=== PATIENT | female | born 1970 | race Caucasian/White ===

== ENCOUNTER 2018-08-31 16:59 | Observation (INO) ==
[2018-08-31] MEDS ORDERED: Aspirin 325 MG Tablet PO ONE (17:34)
--- NOTE | 2018-08-31 17:42 | ED ---
HPI General Chief Complaint: Arrhythmia / Palpitations Stated Complaint: Cardiac Time Seen by Provider: 08/31/18 17:27 Source: patient Mode of arrival: ambulatory Limitations: no limitations History of Present Illness HPI narrative: 48 YO F with PMH of GERD, HTN presents to the ED for evaluation of abnormal EKG. The patient states that she went to her PCP with complaint of worsening GERD symptoms x 4 days and was sent for further evaluation. She describes a discomfort that radiates from the belly into the chest, 6/10 maximally, pain is intermittent, wavelike. She states that the pain is worsened by eating acidic foods like tomatoes. No alleviating factors reported. Currently asymptomatic. She denies chest pain, palpitations, shortness of breath, abdominal pain, nausea, vomiting, changes in bowel habits, history of abdominal surgery, lower extremity edema, calf pain. She uses oral contraception. She is a lifelong nonsmoker. She denies recent period of immobilization. She denies familial history of [place]. She states that she was told that she is "borderline" for diabetes and hyperlipidemia. Related Data Home Medications Medication Instructions Recorded Confirmed hydrochlorothiazide 25 mg PO DAILY 08/31/18 08/31/18 multivitamin 1 tab PO DAILY 08/31/18 08/31/18 omeprazole 20 mg PO DAILY 08/31/18 08/31/18 Previous Rx's Medication Instructions Recorded hydrocodone-acetaminophen [[place]] 1 tab PO Q4H #25 tab 09/01/18 Allergies Allergy/AdvReac Type Severity Reaction Status Date / Time No Known Allergies Allergy Verified 08/31/18 17:44 Review of Systems ROS: all other systems reviewed are negative PMFSH Medical History Medical History GERD (gastroesophageal reflux disease) (Acute) HBP (high blood pressure) (Acute) Irritable bowel syndrome (Acute) Family History Family History Other Family history normal Social History Social History Substance History: No History of Abuse Second Hand Smoke Exposure: No Smoking Status: Never smoker How Often Do You Have a Drink Containing Alcohol: Never Recent Travel in [facility] [place] within the Last 8 Weeks: No Recent Out of Country Travel within the Last 8 Weeks: No Exam Narrative Exam Narrative: GENERAL: Well-nourished, well-developed white female in no acute distress. SKIN: Focused skin assessment warm/dry. HEAD: Atraumatic. Normocephalic. EYES: Pupils equal and round. No scleral icterus. No injection or drainage. ENT: No nasal bleeding or discharge. Mucous membranes pink and moist. NECK: Trachea midline. No JVD. CARDIOVASCULAR: Tachycardic. Patient regular rate and rhythm. No murmur appreciated. RESPIRATORY: No accessory muscle use. Clear to auscultation. Breath sounds clear and Equal bilaterally. GASTROINTESTINAL: Abdomen soft, nondistended. TTP in the RUQ. Hepatic and splenic margins not palpable. Active bowel sounds. MUSCULOSKELETAL: No obvious deformities. No clubbing. No cyanosis. No edema. Homans sign negative bilaterally. NEUROLOGICAL: Awake and alert. No obvious cranial nerve deficits. Motor grossly within normal limits. Normal speech. PSYCHIATRIC: Appropriate mood and affect; insight and judgment normal. Course Initial Documented Vital Signs Temperature 97.7 F 08/31/18 17:08 Pulse Rate 133 H 08/31/18 17:08 Respiratory Rate 20 08/31/18 17:08 Blood Pressure 165/112 H 08/31/18 17:08 Pulse Oximetry 98 08/31/18 17:08 Last Documented Vital Signs Temperature 98.1 F 09/02/18 04:00 Pulse Rate 93 H 09/02/18 04:00 Respiratory Rate 17 09/02/18 04:00 Blood Pressure 120/63 09/02/18 04:00 Pulse Oximetry 97 09/02/18 04:00 Clinical Decision Support HEART Score Questions History: Slightly suspicious EKG: Non-specific repolarization disturbance Age: 45-64 years Risk Factors: 1-2 Risk Factors Initial Troponin: Normal Limit Heart Score HEART Score: 3 Wells' Criteria Questions Clinical Signs and Symptoms of DVT: No PE is primary diagnosis or equally likely: Yes Heart Rate greater than 100: Yes Immobilized at least 3 days or Surgery in previous 4 weeks: No Previous, objectively diagnosed PE or DVT: No Hemoptysis: No Malignancy with treatment within 6 months or palliative: No Wells' Criteria Score Wells' Criteria Score: 4.5 Medical Decision Making LUCIEN Attestation LUCIEN supervised visit: Yes Attestation: I, Dr. Spence, have reviewed the advance practice practitioner's documentation and am in agreement, met with the patient face to face, made the diagnosis, and the medical decision making was done by me. *My assessment and Findings: Acute cholecystitis MDM Narrative Medical decision making narrative: 48 YO F with PMH of GERD, HTN presents to the ED for evaluation of abnormal EKG. The patient states that she went to her PCP with complaint of worsening GERD symptoms x 4 days and was sent for further evaluation. She describes a discomfort that radiates from the belly into the chest, 6/10 maximally, pain is intermittent, wavelike. She states that the pain is worsened by eating acidic foods like tomatoes. No alleviating factors reported. Currently asymptomatic. The patient is tachycardic and hypertensive on presentation. On exam CTAB. Abdomen tender in the right upper quadrant. No lower extremity edema. Homans sign negative bilaterally. The patient was ministered a liter of fluids. CT without acute findings. Troponin negative x1. CXR without acute findings. D-dimer 1.00. CTA negative for PE. CBC with leukocytosis of 21.7. CMP with potassium of 2.5. Gallbladder ultrasound reveals stone in the gallbladder neck with sludge. No wall thickening. Trace pericholecystic fluid. Lipase 107. UA cloudy, ketone positive, large occult blood. Moderate leukocyte esterase, 175 WBCs, few bacteria. Patient was administered 40 mEq of potassium by mouth and 40 mg potassium by IV. 3.75 g Zosyn initiated. Patient was administered a second liter of normal saline. Heart rate improved to 115. I repeatedly asked the patient if she would like pain medications and she refuses. Dr. Spence spoke with Dr. Sanchez who wants the patient made n.p.o. at midnight and will consider surgery in the morning. I discussed this plan with the patient who is agreeable to admission. Discussed the patient with Dr. Mckeon who agrees to accept her to the medicine service. Please see medicine and surgery notes for disposition. Medical Screen Exam Complete: Yes Emergency Medical Condition: Yes Differential Diagnosis Differential Diagnosis: PE versus GERD versus choledocholithiasis versus metabolic derangement versus other Lab Data Result diagrams: 09/02/18 04:09 09/01/18 06:00 POC Results POC Urine Results Negative Lab Results 08/31/18 08/31/18 08/31/18 Range/Units 17:39 17:39 17:39 WBC 21.7 H (4.0-11.0) th/mm3 RBC 4.82 (4.00-5.30) mil/mm3 Hgb 15.1 (11.6-15.3) gm/dL Hct 43.6 (35.0-46.0) % MCV 90.4 (80.0-100.0) fL MCH 31.4 (27.0-34.0) pg MCHC 34.8 (32.0-36.0) % RDW 14.2 (11.6-17.2) % Plt Count 289 (150-450) th/mm3 MPV 8.2 (7.0-11.0) fL Neut % (Auto) 84.8 H (16.0-70.0) % Lymph % (Auto) 8.0 L (9.0-44.0) % Cross % (Auto) 6.6 (0.0-8.0) % Eos % (Auto) 0.3 (0.0-4.0) % Baso % (Auto) 0.3 (0.0-2.0) % Neut # (Auto) 18.4 H (1.8-7.7) th/mm3 Lymph # (Auto) 1.7 (1.0-4.8) th/mm3 Cross # (Auto) 1.4 H (0.0-0.9) th/mm3 Eos # (Auto) 0.1 (0.0-0.4) th/mm3 Baso # (Auto) 0.1 (0.0-0.2) th/mm3 WBC Differential . Differential Comment Auto diff final D-Dimer Quant (PE/DVT) 1.00 H (0.00-0.50) mg/L FEU Sodium 133 L (136-145) meq/L Potassium 2.5 L* (3.5-5.1) meq/L Chloride 94 L (98-107) meq/L Carbon Dioxide 28.4 (21.0-32.0) meq/L Anion Gap 11 (5-15) meq/L BUN 16 (7-18) mg/dL Creatinine 0.71 (0.50-1.00) mg/dL Estimated GFR 88 L (>89) mL/min Random Glucose 123 H (74-106) mg/dL Calcium 9.0 (8.5-10.1) mg/dL Total Bilirubin 0.5 (0.2-1.0) mg/dL AST 14 L (15-37) U/L ALT 16 (10-53) U/L Alkaline Phosphatase 95 (45-117) U/L Total Creatine Kinase (26-192) U/L Troponin I Less than 0.02 L (0.02-0.05) ng/mL Total Protein 8.9 H (6.4-8.2) g/dL Albumin 3.4 (3.4-5.0) g/dL Lipase 107 (73-393) U/L Urine Color (Yellw/Straw) Urine Clarity (Clear) Urine pH (5.0-8.5) Ur Specific [place] (1.002-1.035) Urine Protein (Neg-Trace) mg/dL Urine Glucose (UA) (Negative) mg/dL Urine Ketones (Negative) mg/dL Urine Occult Blood (Negative) Urine Nitrate (Negative) Urine Bilirubin (Negative) Urine Urobilinogen (Less than 2) mg/dL Ur Leukocyte Esterase (Negative) Urine RBC (0-3) /hpf Urine WBC (0-5) /hpf Ur Squamous Epith Cells (0-5) /hpf Urine Bacteria (None) /hpf Urine Mucus (Occasional) /lpf Micro UA Comment Ur Microscopic Review Urine Culture Comments 08/31/18 09/01/18 09/01/18 Range/Units 18:45 02:07 06:00 WBC 17.1 H (4.0-11.0) th/mm3 RBC 4.24 (4.00-5.30) mil/mm3 Hgb 13.2 (11.6-15.3) gm/dL Hct 39.2 (35.0-46.0) % MCV 92.4 (80.0-100.0) fL MCH 31.1 (27.0-34.0) pg MCHC 33.7 (32.0-36.0) % RDW 14.4 (11.6-17.2) % Plt Count 243 (150-450) th/mm3 MPV 8.6 (7.0-11.0) fL Neut % (Auto) 80.2 H (16.0-70.0) % Lymph % (Auto) 11.7 (9.0-44.0) % Cross % (Auto) 7.1 (0.0-8.0) % Eos % (Auto) 0.9 (0.0-4.0) % Baso % (Auto) 0.1 (0.0-2.0) % Neut # (Auto) 13.7 H (1.8-7.7) th/mm3 Lymph # (Auto) 2.0 (1.0-4.8) th/mm3 Cross # (Auto) 1.2 H (0.0-0.9) th/mm3 Eos # (Auto) 0.2 (0.0-0.4) th/mm3 Baso # (Auto) 0.0 (0.0-0.2) th/mm3 WBC Differential . Differential Comment Auto diff final D-Dimer Quant (PE/DVT) (0.00-0.50) mg/L FEU Sodium (136-145) meq/L Potassium (3.5-5.1) meq/L Chloride (98-107) meq/L Carbon Dioxide (21.0-32.0) meq/L Anion Gap (5-15) meq/L BUN (7-18) mg/dL Creatinine (0.50-1.00) mg/dL Estimated GFR (>89) mL/min Random Glucose (74-106) mg/dL Calcium (8.5-10.1) mg/dL Total Bilirubin (0.2-1.0) mg/dL AST (15-37) U/L ALT (10-53) U/L Alkaline Phosphatase (45-117) U/L Total Creatine Kinase 27 (26-192) U/L Troponin I Less than 0.02 L (0.02-0.05) ng/mL Total Protein (6.4-8.2) g/dL Albumin (3.4-5.0) g/dL Lipase (73-393) U/L Urine Color Red (Yellw/Straw) Urine Clarity Cloudy H (Clear) Urine pH 5.0 (5.0-8.5) Ur Specific [place] 1.020 (1.002-1.035) Urine Protein 100 H (Neg-Trace) mg/dL Urine Glucose (UA) Negative (Negative) mg/dL Urine Ketones Trace H (Negative) mg/dL Urine Occult Blood Large H (Negative) Urine Nitrate Negative (Negative) Urine Bilirubin Negative (Negative) Urine Urobilinogen Less than 2 (Less than 2) mg/dL Ur Leukocyte Esterase Moderate H (Negative) Urine RBC (0-3) /hpf Urine WBC 175 H (0-5) /hpf Ur Squamous Epith Cells 5 (0-5) /hpf Urine Bacteria Few H (None) /hpf Urine Mucus Many H (Occasional) /lpf Micro UA Comment Culture indicated Ur Microscopic Review Not Reportable Urine Culture Comments Culture indicated 09/01/18 09/01/18 09/01/18 Range/Units 06:00 20:43 20:43 WBC (4.0-11.0) th/mm3 RBC (4.00-5.30) mil/mm3 Hgb 11.3 L (11.6-15.3) gm/dL Hct Cancelled 32.7 L (35.0-46.0) % MCV (80.0-100.0) fL MCH (27.0-34.0) pg MCHC (32.0-36.0) % RDW (11.6-17.2) % Plt Count (150-450) th/mm3 MPV (7.0-11.0) fL Neut % (Auto) (16.0-70.0) % Lymph % (Auto) (9.0-44.0) % Cross % (Auto) (0.0-8.0) % Eos % (Auto) (0.0-4.0) % Baso % (Auto) (0.0-2.0) % Neut # (Auto) (1.8-7.7) th/mm3 Lymph # (Auto) (1.0-4.8) th/mm3 Cross # (Auto) (0.0-0.9) th/mm3 Eos # (Auto) (0.0-0.4) th/mm3 Baso # (Auto) (0.0-0.2) th/mm3 WBC Differential Differential Comment D-Dimer Quant (PE/DVT) (0.00-0.50) mg/L FEU Sodium 137 (136-145) meq/L Potassium 3.6 D (3.5-5.1) meq/L Chloride 103 D (98-107) meq/L Carbon Dioxide 23.7 (21.0-32.0) meq/L Anion Gap 10 (5-15) meq/L BUN 9 (7-18) mg/dL Creatinine 0.47 L (0.50-1.00) mg/dL Estimated GFR Greater than 89 (>89) mL/min Random Glucose 105 (74-106) mg/dL Calcium 8.0 L D (8.5-10.1) mg/dL Total Bilirubin 0.9 (0.2-1.0) mg/dL AST 13 L (15-37) U/L ALT 12 (10-53) U/L Alkaline Phosphatase 83 (45-117) U/L Total Creatine Kinase 28 (26-192) U/L Troponin I Less than 0.02 L (0.02-0.05) ng/mL Total Protein 7.4 D (6.4-8.2) g/dL Albumin 2.7 L D (3.4-5.0) g/dL Lipase (73-393) U/L Urine Color (Yellw/Straw) Urine Clarity (Clear) Urine pH (5.0-8.5) Ur Specific [place] (1.002-1.035) Urine Protein (Neg-Trace) mg/dL Urine Glucose (UA) (Negative) mg/dL Urine Ketones (Negative) mg/dL Urine Occult Blood (Negative) Urine Nitrate (Negative) Urine Bilirubin (Negative) Urine Urobilinogen (Less than 2) mg/dL Ur Leukocyte Esterase (Negative) Urine RBC (0-3) /hpf Urine WBC (0-5) /hpf Ur Squamous Epith Cells (0-5) /hpf Urine Bacteria (None) /hpf Urine Mucus (Occasional) /lpf Micro UA Comment Ur Microscopic Review Urine Culture Comments 09/02/18 Range/Units 04:09 WBC 13.0 H (4.0-11.0) th/mm3 RBC 3.59 L (4.00-5.30) mil/mm3 Hgb 11.1 L (11.6-15.3) gm/dL Hct 33.3 L (35.0-46.0) % MCV 92.8 (80.0-100.0) fL MCH 31.1 (27.0-34.0) pg MCHC 33.5 (32.0-36.0) % RDW 14.3 (11.6-17.2) % Plt Count 237 (150-450) th/mm3 MPV 8.4 (7.0-11.0) fL Neut % (Auto) 78.1 H (16.0-70.0) % Lymph % (Auto) 14.4 (9.0-44.0) % Cross % (Auto) 6.8 (0.0-8.0) % Eos % (Auto) 0.6 (0.0-4.0) % Baso % (Auto) 0.1 (0.0-2.0) % Neut # (Auto) 10.2 H (1.8-7.7) th/mm3 Lymph # (Auto) 1.9 (1.0-4.8) th/mm3 Cross # (Auto) 0.9 (0.0-0.9) th/mm3 Eos # (Auto) 0.1 (0.0-0.4) th/mm3 Baso # (Auto) 0.0 (0.0-0.2) th/mm3 WBC Differential . Differential Comment Auto diff final D-Dimer Quant (PE/DVT) (0.00-0.50) mg/L FEU Sodium (136-145) meq/L Potassium (3.5-5.1) meq/L Chloride (98-107) meq/L Carbon Dioxide (21.0-32.0) meq/L Anion Gap (5-15) meq/L BUN (7-18) mg/dL Creatinine (0.50-1.00) mg/dL Estimated GFR (>89) mL/min Random Glucose (74-106) mg/dL Calcium (8.5-10.1) mg/dL Total Bilirubin (0.2-1.0) mg/dL AST (15-37) U/L ALT (10-53) U/L Alkaline Phosphatase (45-117) U/L Total Creatine Kinase (26-192) U/L Troponin I (0.02-0.05) ng/mL Total Protein (6.4-8.2) g/dL Albumin (3.4-5.0) g/dL Lipase (73-393) U/L Urine Color (Yellw/Straw) Urine Clarity (Clear) Urine pH (5.0-8.5) Ur Specific [place] (1.002-1.035) Urine Protein (Neg-Trace) mg/dL Urine Glucose (UA) (Negative) mg/dL Urine Ketones (Negative) mg/dL Urine Occult Blood (Negative) Urine Nitrate (Negative) Urine Bilirubin (Negative) Urine Urobilinogen (Less than 2) mg/dL Ur Leukocyte Esterase (Negative) Urine RBC (0-3) /hpf Urine WBC (0-5) /hpf Ur Squamous Epith Cells (0-5) /hpf Urine Bacteria (None) /hpf Urine Mucus (Occasional) /lpf Micro UA Comment Ur Microscopic Review Urine Culture Comments Imaging Data Radiologist's impression: Chest X-Ray 08/31/18 17:34 CONCLUSION: No active disease. Gallbladder Ultrasound 08/31/18 17:34 CONCLUSION: 1. Gallstone in gallbladder neck sludge in gallbladder and trace fluid around gallbladder. No significant gallbladder wall thickening. Chest CTA 08/31/18 18:44 CONCLUSION: 1. No pulmonary embolus. 2. Small focal subpleural density in the posterior right lateral base likely related to atelectasis or small focal consolidation. This can be followed. 3. Gallstone ECG Data Attestation: I personally reviewed and interpreted this ECG as follows: Interpretation: Rate 123 Sinus tachycardia Normal axis No acute ST changes Discharge Plan Discharge Disposition Patient Disposition: 30 Still Patient Physicians Team ED Provider: Evangelist Spence ED Midlevel Provider: Loraien uK Primary Care Provider: Johnna Orellana Attending Provider: Ameena Naik Other Providers: Rai Sanchez Status ED Status: Left Department Discharge Information Discharge Date/Time: 09/01/18 00:48
[2018-08-31 18:09] LABS: Baso # (Auto) 0.1 th/mm3 (0.0-0.2); Baso % (Auto) 0.3 % (0.0-2.0); Eos # (Auto) 0.1 th/mm3 (0.0-0.4); Eos % (Auto) 0.3 % (0.0-4.0); Hematocrit 43.6 % (35.0-46.0); Hemoglobin 15.1 gm/dL (11.6-15.3); Lymph # (Auto) 1.7 th/mm3 (1.0-4.8); Mean Corpuscular HGB Conc 34.8 % (32.0-36.0); Mean Corpuscular Hemoglobin 31.4 pg (27.0-34.0); Mean Corpuscular Volume 90.4 fL (80.0-100.0); Mean Platelet Volume 8.2 fL (7.0-11.0); Mono # (Auto) 1.4 th/mm3 (0.0-0.9); Mono % (Auto) 6.6 % (0.0-8.0); Neut # (Auto) 18.4 th/mm3 (1.8-7.7); Neut % (Auto) 84.8 % (16.0-70.0); Platelet Count 289 th/mm3 (150-450); Red Blood Count 4.82 mil/mm3 (4.00-5.30); Red Cell Distribution Width 14.2 % (11.6-17.2); White Blood Count 21.7 th/mm3 (4.0-11.0)
--- NOTE | 2018-08-31 18:11 | XR ---
EXAM DATE: 08/31/2018 6:02 PM EST AGE/SEX: 48 years / Female INDICATIONS: Chest discomfort. CLINICAL DATA: This is the patient's initial encounter. Patient reports that signs and symptoms have been present for 1 day and indicates a pain score of 6/10. MEDICAL/SURGICAL HISTORY: None. None. COMPARISON: . FINDINGS: A single AP view of the chest demonstrates the lungs to be symmetrically aerated without evidence of mass, infiltrate or effusion. The cardiomediastinal contours are unremarkable. Osseous structures a re intact. CONCLUSION: No active disease. Electronically signed by: Jayden Rinaldi MD 08/31/2018 6:10 PM EST
[2018-08-31] MEDS ORDERED: Sod Chloride 0.9% Inj 1,000 ML IV.SIG ONE (18:23)
--- NOTE | 2018-08-31 18:26 | US ---
EXAM DATE: 08/31/2018 6:20 PM EST AGE/SEX: 48 years / Female INDICATIONS: Right upper quadrant pain. CLINICAL DATA: This is the patient's initial encounter. Patient reports that signs and symptoms have been present for 4 - 6 days and indicates a pain score of 4/10. MEDICAL/SURGICAL HISTORY: Gastroesophageal reflux disease. Hypertension. . Ankle surgery. COMPARISON: No prior exams available for comparison. MEASUREMENTS: Liver:__ 18.1 cm. Common Bile Duct:__ 5mm. FINDINGS: Liver: Normal echotexture without focal lesion or ductal dilatation. Portal Vein: Hepatopedal flow seen in portal vein. Common Duct: No intraluminal mass or stone visualized. Gallbladder: Gallstone in gallbladder neck measuring up to 1.9 x 0.4 x 1.5 cm. Also sludge in gallbl adder. Trace fluid around gallbladder. Pancreas: The visualized portions are within normal limits Right Kidney: Normal echotexture and cortical thickness. No mass or hydronephrosis. Other: None. CONCLUSION: 1. Gallstone in gallbladder neck sludge in gallbladder and trace fluid around gallbladder. No signif icant gallbladder wall thickening. Electronically signed by: Jayden Rinaldi MD 08/31/2018 6:24 PM EST
[2018-08-31 18:38] LABS: Alanine Aminotransferase 16 U/L (10-53); Albumin 3.4 g/dL (3.4-5.0); Anion Gap 11 meq/L (5-15); Aspartate Aminotransferase 14 U/L (15-37); Blood Urea Nitrogen 16 mg/dL (7-18); Carbon Dioxide 28.4 meq/L (21.0-32.0); Chloride 94 meq/L (98-107); Glomerular Filtration Rate 88 mL/min (>89); Glucose,Random 123 mg/dL (74-106); Lipase 107 U/L (73-393); Sodium 133 meq/L (136-145)
[2018-08-31 18:42] LABS: Alkaline Phosphatase 95 U/L (45-117); Total Protein 8.9 g/dL (6.4-8.2)
[2018-08-31 18:51] LABS: Potassium 2.5 meq/L (3.5-5.1)
[2018-08-31 19:18] LABS: Bacteria,Urine Few /hpf; Bilirubin,Urine Negative (Negative); Clarity,Urine Cloudy (Clear); Color,Urine Red (Yellw/Straw); Glucose,Urine (UA) Negative (Negative); Leukocyte Esterase,Urine Moderate (Negative); Mucus,Urine Many /lpf (Occasional); Nitrite,Urine Negative (Negative); Squamous Epithelial Cell,Urine 5 /hpf (0-5)
--- NOTE | 2018-08-31 19:54 | CT ---
EXAM DATE: 08/31/2018 7:25 PM EST AGE/SEX: 48 years / Female INDICATIONS: Elevated heart rate CLINICAL DATA: This is the patient's initial encounter. Patient reports that signs and symptoms have been present for 1 day and indicates a pain score of 0/10. MEDICAL/SURGICAL HISTORY: Hypertension. None. RADIATION DOSE: 6.19 CTDI (mGy) COMPARISON: No prior exams available for comparison. TECHNIQUE: Volumetric scanning was performed using a multi-row detector CT scanner during bolus infu luis angel of 52 ml Omnipaque 350 (iohexol) nonionic water-soluble contrast as a single exam dose. The brigida a was post processed with a variety of visualization algorithms including full volume maximum intensi ty projection and sliding thin slab reformation. Using automated exposure control and adjustment of t he mA and/or kV according to patient size, radiation dose was kept as low as reasonably achievable to obtain optimal diagnostic quality images. DICOM format image data is available electronically for r eview and comparison. FINDINGS: Pulmonary Arteries: No filling defects are seen in the pulmonary arteries out to the subsegmental ve ssels. The left and right pulmonary arteries are normal in diameter. Lung: There is a small focal area of subpleural density seen at the posterior lateral right base. Effusion: None. Mediastinum: No evidence of mediastinal or hilar adenopathy. Other: The axilla is unremarkable. There is a calcified gallstone seen in the gallbladder. CONCLUSION: 1. No pulmonary embolus. 2. Small focal subpleural density in the posterior right lateral base likely related to atelectasis or small focal consolidation. This can be followed. 3. Gallstone Electronically signed by: Cecilio Escamilla MD 08/31/2018 7:52 PM EST
[2018-08-31] MEDS ORDERED: Piperacil/Tazo 3.375 GM Premix 50 ML IV.SIG ONE (20:13)
[2018-09-01] MEDS ORDERED: Acetaminophen 325 MG Tablet PO PRN (00:49)
[2018-09-01] MEDS ORDERED: Bisacodyl 10 MG Supp RECTAL PRN (00:49)
[2018-09-01] MEDS ORDERED: Sodium Chloride 0.9% 2 ML Flush PRN IV.FLUSH (01:05)
--- NOTE | 2018-09-01 01:06 | P.HP ---
History of Present Illness Service: [facility] Primary Care Physician: Johnna Orellana MD History of Present Illness: 48-year-old female with a past medical history significant for IBS, GERD and hypertension presents to the emergency department for the evaluation of chest burning and abdominal pain. The patient went to urgent care where she was found to be in sinus tachycardia and sent to the emergency department for further evaluation. She denies any fevers or chills. No nausea/vomiting/ diarrhea. No chest pain or shortness of breath. Found to have a leukocytosis of 21.7. EKG significant for sinus tachycardia, pulse 123. Review of Systems All other systems reviewed negative except as stated in HPI PMFSH - History History Provided By: Patient - Medical History Medical History: Medical History (Last Updated 09/01/18 @ 00:58 by Mi Mckeon MD) GERD (gastroesophageal reflux disease) HBP (high blood pressure) Irritable bowel syndrome - Surgical History Surgical History: Surgical History (Last Reviewed 09/01/18 @ 00:58 by Mi Mckeon MD) History of ankle surgery - Family History Family History: Family History (Last Updated 09/01/18 @ 00:58 by Mi Mckeon MD) Other Family history normal - Tobacco History Second Hand Smoke Exposure: No Smoking Status: Never smoker - Alcohol History How Often Do You Have a Drink Containing Alcohol: Never - Substance Use History Substance History: No History of Abuse - Travel History Recent Travel in the [place] Within the Last 8 Weeks: No Recent Travel Out of the Country Within the Last 8 Weeks: No - Immunization History Tetanus Immunization: >5 Years Medications and Allergies Active Medications: Active Medications Acetaminophen (Tylenol) 650 mg PO Q4H PRN PRN Reason: Temp > 100.4 Potassium Chloride/Sodium Chloride (Ns + Kcl 20 Meq Inj) 1,000 mls @ 70 mls/hr IV.CONT .[id number] DEL Last Admin: 08/31/18 19:08 Dose: 125 mls/hr Sodium Chloride (Ns Flush) 2 ml IV.FLUSH UNSCH PRN PRN Reason: FLUSH AFTER USING IV ACCESS Last Admin: 08/31/18 17:46 Dose: 2 ml Allergies Allergy/AdvReac Type Severity Reaction Status Date / Time No Known Allergies Allergy Verified 08/31/18 17:44 Home Medications Medication Instructions Recorded Confirmed Type hydrochlorothiazide 25 mg PO DAILY 08/31/18 08/31/18 History multivitamin 1 tab PO DAILY 08/31/18 08/31/18 History omeprazole 20 mg PO DAILY 08/31/18 08/31/18 History Exam Vital signs: Vital Signs 08/31/18 17:08 08/31/18 17:34 08/31/18 18:12 Temperature 97.7 F 97.8 F 97.8 F Pulse Rate 133 H 128 H 124 H Respiratory Rate 20 16 16 Blood Pressure 165/112 H 147/88 H 140/83 Pulse Oximetry 98 99 99 08/31/18 19:06 08/31/18 23:35 Temperature Pulse Rate 103 H Respiratory Rate 18 Blood Pressure 144/89 H 120/72 Pulse Oximetry 97 Intake & Output 08/31/18 08/31/18 09/01/18 06:59 18:59 06:59 Intake Total 1050 / 1050 Balance 1050 / 1050 Weight 53.977 kg Intake: IV 1050 / 1050 Zosyn 3.375 GM Premix 50 ML @ 50 / 50 100 mls/hr IV.SIG ONCE ONE Rx#: [id number] NS Inj 1,000 ML @ Wide Open IV. 1000 / 1000 SIG BOLUS ONE Rx#:[id number] Narrative: Gen.: No acute distress Head: Normocephalic. Atraumatic. EENT: Pupils equal round and reactive to light. Nose without drainage. Airway intact. Throat without injection. Cardiovascular: Regular rate and rhythm. No murmurs, rubs or gallops. Respiratory: Lungs clear to auscultation bilaterally. No wheezes or rhonchi. Abdomen: Soft, diffusely tender to palpation, nondistended. No peritoneal signs. Musculoskeletal: No gross deformities. No edema. Skin: No obvious rashes or erythema. Neuro: Sensory and motor grossly intact. Cranial nerves II through XII grossly intact. Results - Labs CBC & Chem 7: 08/31/18 17:39 08/31/18 17:39 Labs: Laboratory Results - last 24 hr 08/31/18 08/31/18 08/31/18 17:39 17:39 17:39 WBC 21.7 H RBC 4.82 Hgb 15.1 Hct 43.6 MCV 90.4 MCH 31.4 MCHC 34.8 RDW 14.2 Plt Count 289 MPV 8.2 Neut % (Auto) 84.8 H Lymph % (Auto) 8.0 L [place] % (Auto) 6.6 Eos % (Auto) 0.3 Baso % (Auto) 0.3 Neut # (Auto) 18.4 H Lymph # (Auto) 1.7 [place] # (Auto) 1.4 H Eos # (Auto) 0.1 Baso # (Auto) 0.1 WBC Differential . Differential Comment Auto diff final D-Dimer Quant (PE/DVT) 1.00 H Sodium 133 L Potassium 2.5 L* Chloride 94 L Carbon Dioxide 28.4 Anion Gap 11 BUN 16 Creatinine 0.71 Estimated GFR 88 L Random Glucose 123 H Calcium 9.0 Total Bilirubin 0.5 AST 14 L ALT 16 Alkaline Phosphatase 95 Troponin I Less than 0.02 L Total Protein 8.9 H Albumin 3.4 Lipase 107 Urine Color Urine Clarity Urine pH Ur Specific [place] Urine Protein Urine Glucose (UA) Urine Ketones Urine Occult Blood Urine Nitrate Urine Bilirubin Urine Urobilinogen Ur Leukocyte Esterase Urine RBC Urine WBC Ur Squamous Epith Cells Urine Bacteria Urine Mucus Micro UA Comment Ur Microscopic Review Urine Culture Comments 08/31/18 18:45 WBC RBC Hgb Hct MCV MCH MCHC RDW Plt Count MPV Neut % (Auto) Lymph % (Auto) [place] % (Auto) Eos % (Auto) Baso % (Auto) Neut # (Auto) Lymph # (Auto) [place] # (Auto) Eos # (Auto) Baso # (Auto) WBC Differential Differential Comment D-Dimer Quant (PE/DVT) Sodium Potassium Chloride Carbon Dioxide Anion Gap BUN Creatinine Estimated GFR Random Glucose Calcium Total Bilirubin AST ALT Alkaline Phosphatase Troponin I Total Protein Albumin Lipase Urine Color Red Urine Clarity Cloudy H Urine pH 5.0 Ur Specific [place] 1.020 Urine Protein 100 H Urine Glucose (UA) Negative Urine Ketones Trace H Urine Occult Blood Large H Urine Nitrate Negative Urine Bilirubin Negative Urine Urobilinogen Less than 2 Ur Leukocyte Esterase Moderate H Urine RBC Urine WBC 175 H Ur Squamous Epith Cells 5 Urine Bacteria Few H Urine Mucus Many H Micro UA Comment Culture indicated Ur Microscopic Review Not Reportable Urine Culture Comments Culture indicated - Imaging Impressions Chest X-Ray 08/31/18 17:34 CONCLUSION: No active disease. Gallbladder Ultrasound 08/31/18 17:34 CONCLUSION: 1. Gallstone in gallbladder neck sludge in gallbladder and trace fluid around gallbladder. No significant gallbladder wall thickening. Chest CTA 08/31/18 18:44 CONCLUSION: 1. No pulmonary embolus. 2. Small focal subpleural density in the posterior right lateral base likely related to atelectasis or small focal consolidation. This can be followed. 3. Gallstone Caprini VTE Risk Assessment Caprini VTE Risk Assessment: No/Low Risk (score <= 1) Caprini Risk Assessment Model: Point Value = 1 Point Value = 2 Point Value = 3 Point Value = 5 Age 41-60 Minor surgery BMI > 25 kg/m2 Swollen legs Varicose veins or History of unexplained or recurrent spontaneous Oral contraceptives or hormone replacement Sepsis (< 1 month) Serious lung disease, including pneumonia (< 1 month) Abnormal pulmonary function Acute myocardial infarction Congestive heart failure (< 1 month) History of inflammatory bowel disease Medical patient at bed rest Age 61-74 Arthroscopic surgery Major open surgery (> 45 min) Laparoscopic surgery (> 45 min) Malignancy Confined to bed (> 72 hours) Immobilizing plaster cast Central venous access Age >= 75 History of VTE Family history of VTE Factor V Leiden Prothrombin [id number] Lupus anticoagulant Anticardiolipin antibodies Elevated serum homocysteine Heparin-induced thrombocytopenia Other congenital or acquired thrombophilia Stroke (< 1 month) Elective arthroplasty Hip, pelvis, or leg fracture Acute spinal cord injury (< 1 month) Prophylaxis Regimen: Total Risk Factor Score Risk Level Prophylaxis Regimen 0-1 Low Early ambulation 2 Moderate Order ONE of the following: *Sequential Compression Device (SCD) *Heparin 5000 units SQ BID 3-4 Higher Order ONE of the following medications: *Heparin 5000 units SQ TID *Enoxaparin/Lovenox 40 mg SQ daily (WT < 150 kg, CrCl > 30 mL/min) *Enoxaparin/Lovenox 30 mg SQ daily (WT < 150 kg, CrCl > 10-29 mL/min) *Enoxaparin/Lovenox 30 mg SQ BID (WT < 150 kg, CrCl > 30 mL/min) AND/OR *Sequential Compression Device (SCD) 5 or more Highest Order ONE of the following medications: *Heparin 5000 units SQ TID (Preferred with Epidurals) *Enoxaparin/Lovenox 40 mg SQ daily (WT < 150 kg, CrCl > 30 mL/min) *Enoxaparin/Lovenox 30 mg SQ daily (WT < 150 kg, CrCl > 10-29 mL/min) *Enoxaparin/Lovenox 30 mg SQ BID (WT < 150 kg, CrCl > 30 mL/min) AND *Sequential Compression Device (SCD) Assessment and Plan - Plan Assessment/plan: 1. Abdominal pain Gallbladder ultrasound significant for gallstone in gallbladder neck with sludge and trace amount of pericholecystic fluid Given leukocytosis and abdominal pain, concern for cholecystitis Zosyn General surgery consulted, appreciate recommendations 2. Hypokalemia Potassium 2.5 Holding home hydrochlorothiazide Status post p.o. and IV supplementation Monitor BMP 3. Tachycardia EKG showed normal sinus rhythm, pulse [address] segment elevations or depressions, personally reviewed Initial troponin negative, given patient's abdominal pain workup for atypical chest pain with serial troponins/EKGs Resolving with IV fluids Telemetry 4. Hypertension/GERD Clonidine as needed Holding home hydrochlorothiazide as above Continue home omeprazole 5. UTI UA consistent with urinary tract infection Urine culture pending Antibiotics as above FEN N.p.o. Electrolytes: As above NS +20 of KCl at 70 cc/hour
[2018-09-01] MEDS: Potassium Chlor 20 mEq Premix 20 MEQ/100 ML PIGGYBACK IV.SIG SCH ×2 (01:59→04:43)
[2018-09-01 02:49] LABS: Creatine Kinase 27 U/L (26-192)
[2018-09-01] MEDS: Piperacil/Tazo 3.375 GM Premix 50 ML IV.SIG SCH ×4 (04:08→22:03)
[2018-09-01 07:07] LABS: Baso % (Auto) 0.1 % (0.0-2.0); Eos # (Auto) 0.2 th/mm3 (0.0-0.4); Eos % (Auto) 0.9 % (0.0-4.0); Hematocrit 39.2 % (35.0-46.0); Hemoglobin 13.2 gm/dL (11.6-15.3); Lymph % (Auto) 11.7 % (9.0-44.0); Mean Corpuscular HGB Conc 33.7 % (32.0-36.0); Mean Corpuscular Hemoglobin 31.1 pg (27.0-34.0); Mean Corpuscular Volume 92.4 fL (80.0-100.0); Mean Platelet Volume 8.6 fL (7.0-11.0); Mono # (Auto) 1.2 th/mm3 (0.0-0.9); Mono % (Auto) 7.1 % (0.0-8.0); Neut # (Auto) 13.7 th/mm3 (1.8-7.7); Neut % (Auto) 80.2 % (16.0-70.0); Platelet Count 243 th/mm3 (150-450); Red Blood Count 4.24 mil/mm3 (4.00-5.30); Red Cell Distribution Width 14.4 % (11.6-17.2); White Blood Count 17.1 th/mm3 (4.0-11.0)
[2018-09-01 08:07] LABS: Alanine Aminotransferase 12 U/L (10-53); Albumin 2.7 g/dL (3.4-5.0); Alkaline Phosphatase 83 U/L (45-117); Anion Gap 10 meq/L (5-15); Aspartate Aminotransferase 13 U/L (15-37); Blood Urea Nitrogen 9 mg/dL (7-18); Carbon Dioxide 23.7 meq/L (21.0-32.0); Chloride 103 meq/L (98-107); Glomerular Filtration Rate Greater Than 89 mL/min (>89); Glucose,Random 105 mg/dL (74-106); Potassium 3.6 meq/L (3.5-5.1); Sodium 137 meq/L (136-145); Total Protein 7.4 g/dL (6.4-8.2)
[2018-09-01 08:27] LABS: Creatine Kinase 28 U/L (26-192)
[2018-09-01] MEDS ORDERED: Chlorhexidine Gluconate 2% 1 Pack (2 Cloths) TOPICAL ONE (08:29)
[2018-09-01] MEDS ORDERED: Metoprolol Tartrate 25 MG Tablet PO ONE (08:29)
[2018-09-01] MEDS: Pantoprazole Sodium 20 MG DR Tablet PO SCH (08:53)
[2018-09-01] MEDS: Sodium Chloride 0.9% 2 ML Flush BID IV.FLUSH SCH ×2 (08:54→22:03)
[2018-09-01] MEDS: Senna/Docusate Sodium 8.6/50 MG Tablet PO SCH ×2 (08:54→22:03)
[2018-09-01] MEDS ORDERED: Sod Chloride 0.9% Inj 1,000 ML IV.SIG ONE (09:00)
[2018-09-01] MEDS ORDERED: Sodium Chlor 0.9% Inj 500 ML IV.SIG SCH (09:00)
[2018-09-01] MEDS ORDERED: hydroCHLOROthiazide 25 MG Tablet PO SCH (09:00)
[2018-09-01] MEDS ORDERED: Bupivacaine/Epinephrine Inj 0.25% 50 ML Vial ONE (12:35)
[2018-09-01] MEDS ORDERED: Sugammadex Inj 200 MG/2 ML Vial IV.PUSH ONE (12:40)
--- NOTE | 2018-09-01 14:41 | ECG ---
Date Performed: 08/31/2018 Time Performed: 17:35:13 PTAGE: 48 years EKG: SINUS TACHYCARDIA Prominent ST depressions which are new from old tracing suggestive of pos sible ischemia Clinical correlation is recommended ABNORMAL ECG PREVIOUS TRACING : 08/20/2016 10.24 DOCTOR: Lenin Rowe Interpretating Date/Time 09/01/2018 14:40:17
--- NOTE | 2018-09-01 14:42 | ECG ---
Date Performed: 09/01/2018 Time Performed: 01:14:51 PTAGE: 48 years EKG: SINUS TACHYCARDIA NONSPECIFIC T-WAVE ABNORMALITY ABNORMAL RHYTHM ECG Marked improvement in the ST abnormalities from the last ekg PREVIOUS TRACING : 08/31/2018 17.35 DOCTOR: Lenin Rowe Interpretating Date/Time 09/01/2018 14:40:45
[2018-09-01] MEDS ORDERED: fentaNYL Citrate Inj 250 MCG/5 ML Ampul ONE (17:26)
[2018-09-01] MEDS ORDERED: Dexmedetomidine Inj 200 MCG/2 ML Vial ONE (19:02)
--- NOTE | 2018-09-01 19:30 | P.CON ---
History of Present Illness Consult date: 09/01/18 Reason for Consult: Acute cholecystitis Primary Care Provider: Johnna Orellana MD History of Present Illness: Patient is a 48-year-old female with a 1 day history of severe pain; she states that it started on Thursday and has become progressively worse. She has never had symptoms like this before. She was found to be in sinus tachycardia and underwent further workup which demonstrated thickened gallbladder wall and a stone in the neck of the gallbladder. WBCs were 21.7. Liver function tests are within normal limits. She is reporting pain in the right upper quadrant with nausea and emesis. She has undergone rehydration and has had potassium supplementation. [facility] - History History Provided By: Patient - Medical History Medical History: Medical History (Last Updated 09/01/18 @ 00:58 by Mi Mckeon MD) GERD (gastroesophageal reflux disease) HBP (high blood pressure) Irritable bowel syndrome - Surgical History Surgical History: Surgical History (Last Reviewed 09/01/18 @ 00:58 by Mi Mckeon MD) History of ankle surgery - Family History Family History: Family History (Last Updated 09/01/18 @ 00:58 by Mi Mckeon MD) Other Family history normal - Tobacco History Second Hand Smoke Exposure: No Tobacco Use In Past 30 Days: No Smoking Status: Never smoker - Alcohol History How Often Do You Have a Drink Containing Alcohol: Never - Substance Use History Substance History: No History of Abuse - Travel History Recent Travel in the [place] Within the Last 8 Weeks: No Recent Travel Out of the Country Within the Last 8 Weeks: No - Immunization History Tetanus Immunization: >5 Years Medications and Allergies Active Medications: Active Medications Acetaminophen (Tylenol) 650 mg PO Q4H PRN PRN Reason: Temp > 100.4 Al Hydroxide/Mg Hydroxide (Milk Of Magnesia Liq) 30 ml PO Q12H PRN PRN Reason: Mild Constipation Bisacodyl (Dulcolax Supp) 10 mg RECTAL DAILY PRN PRN Reason: SEVERE CONSITIPATION Clonidine HCl (Catapres) 0.1 mg PO Q6H PRN PRN Reason: SBP>160, DBP>90 Potassium Chloride/Sodium Chloride (Ns + Kcl 20 Meq Inj) 1,000 mls @ 125 mls/ hr IV.CONT .Q8H DEL Last Infusion: 09/01/18 12:28 Dose: Infused Piperacillin/Tazobactam/Dextrose (Zosyn 3.375 Gm Premix) 50 mls @ 100 mls/hr IV.SIG Q6H [facility] Last Admin: 09/01/18 18:00 Dose: 100 mls/hr Lactated Ringer's (Lr 1000 Ml Inj) 1,000 mls @ 30 mls/hr IV.SIG .Q24H [facility] Stop: 09/02/18 08:29 Sodium Chloride (Ns Inj) 500 mls @ 30 mls/hr IV.SIG .Q10H [facility] Last Admin: 09/01/18 08:55 Dose: Not Given Lactulose (Lactulose Liq) 30 ml PO DAILY PRN PRN Reason: SEVERE CONSITIPATION Ondansetron HCl (Zofran Inj) 4 mg IV.PUSH Q6H PRN PRN Reason: NAUSEA OR VOMITING Pantoprazole Sodium (Protonix) 20 mg PO DAILY [facility] Last Admin: 09/01/18 08:53 Dose: 20 mg Senna/Docusate Sodium (Haliy-Colace) 1 tab PO BID [facility] Last Admin: 09/01/18 08:54 Dose: Not Given Sennosides (Senokot) 17.2 mg PO Q12H PRN PRN Reason: Moderate Constipation Sodium Chloride (Ns Flush) 2 ml IV.FLUSH BID [facility] Last Admin: 09/01/18 08:54 Dose: 2 ml Sodium Chloride (Ns Flush) 2 ml IV.FLUSH PRN PRN PRN Reason: FLUSH AFTER USING IV ACCESS Allergies Allergy/AdvReac Type Severity Reaction Status Date / Time No Known Allergies Allergy Verified 08/31/18 17:44 Home Medications Medication Instructions Recorded Confirmed Type hydrochlorothiazide 25 mg PO DAILY 08/31/18 08/31/18 History multivitamin 1 tab PO DAILY 08/31/18 08/31/18 History omeprazole 20 mg PO DAILY 08/31/18 08/31/18 History Physical Exam Vital signs: Vital Signs 08/31/18 23:35 09/01/18 04:00 09/01/18 04:38 Temperature 98.3 F Pulse Rate 103 H 96 H 94 H Respiratory Rate 18 20 Blood Pressure 120/72 116/73 Pulse Oximetry 97 97 09/01/18 08:00 Temperature 98.5 F Pulse Rate 111 H Respiratory Rate 16 Blood Pressure 135/76 Pulse Oximetry 96 Intake & Output 09/01/18 09/01/18 09/02/18 06:59 18:59 06:59 Intake Total 2300 / 2300 1450 / 1450 1000 / 1000 Output Total 150 / 150 Balance 2300 / 2300 1450 / 1450 850 / 850 Intake: IV 2300 / 2300 1450 / 1450 NS + KCl 20 mEq Inj 1,000 ML @ 1000 / 1000 400 / 400 125 mls/hr IV.CONT .Q8H DEL Rx# :[id number] Zosyn 3.375 GM Premix 50 ML @ 100 / 100 50 / 50 100 mls/hr IV.SIG Q6H DEL Rx#: [id number] KCl 20 mEq Premix Inj 20 meq In 200 / 200 100 ml @ 50 mls/hr IV.SIG Q2H DEL Rx#:[id number] NS Inj 1,000 ML @ As Directed 1000 / 1000 1000 / 1000 IV.SIG BOLUS ONE Rx#:[id number] Anesthesia Amount 1000 / 1000 Output: Estimated Blood Loss 150 / 150 Other: # Voids 2 Date of Last Bowel Movement 09/01/18 09/01/18 - Constitutional mild distress - Routine HEENT Exam Head: Present: normocephalic, atraumatic - Routine Respiratory Exam Present: CTA bilaterally - Routine Cardiovascular Exam Present: tachycardia - Routine Abdominal Exam Present: soft, tenderness (Right upper quadrant and epigastrium), guarding - Detailed Neurological Exam: Coma Scale Verbal Response: Oriented - Routine Psychiatric Exam Present: normal affect Results - Labs CBC & Chem 7: 09/01/18 06:00 09/01/18 06:00 Labs: Laboratory Results - last 24 hr 09/01/18 09/01/18 09/01/18 02:07 06:00 06:00 WBC 17.1 H RBC 4.24 Hgb 13.2 Hct 39.2 MCV 92.4 MCH 31.1 MCHC 33.7 RDW 14.4 Plt Count 243 MPV 8.6 Neut % (Auto) 80.2 H Lymph % (Auto) 11.7 [place] % (Auto) 7.1 Eos % (Auto) 0.9 Baso % (Auto) 0.1 Neut # (Auto) 13.7 H Lymph # (Auto) 2.0 [place] # (Auto) 1.2 H Eos # (Auto) 0.2 Baso # (Auto) 0.0 WBC Differential . Differential Comment Auto diff final Sodium 137 Potassium 3.6 D Chloride 103 D Carbon Dioxide 23.7 Anion Gap 10 BUN 9 Creatinine 0.47 L Estimated GFR Greater than 89 Random Glucose 105 Calcium 8.0 L D Total Bilirubin 0.9 AST 13 L ALT 12 Alkaline Phosphatase 83 Total Creatine Kinase 27 28 Troponin I Less than 0.02 L Less than 0.02 L Total Protein 7.4 D Albumin 2.7 L D - Imaging Impressions Chest CTA 08/31/18 18:44 CONCLUSION: 1. No pulmonary embolus. 2. Small focal subpleural density in the posterior right lateral base likely related to atelectasis or small focal consolidation. This can be followed. 3. Gallstone Assessment and Plan - Assessment (1) Acute cholecystitis due to biliary calculus Code(s): K80.00 - Calculus of gallbladder with acute cholecystitis without obstruction Status: Acute Plan: Laparoscopic cholecystectomy with possible intraoperative cholangiogram with possible open cholecystectomy. I discussed risks of the procedure with the patient, including but not limited to: Bleeding, infection, bile duct injury, bowel injury, possible need for postoperative endoscopy, adhesion formation. I discussed remedies consequences alternatives and convalescence with the patient ; she vocalizes understanding and agrees to proceed. We will proceed with surgery today as soon is a room is available. - Plan Discussed Condition With: Patient Nurse - Attending Attestation I attest that I had a [id number] encounter with the patient on the same day, and personally performed and documented my assessment and findings in the medical record. The following services were provided during this hospital visit: Chart data review, vital sign assessments/reviewing monitor data Review of consultation notes if present Medication orders/review and/or management Ordering and/or reviewing lab tests Ordering and/or interpreting/reviewing x-rays and/or diagnostic studies Care of the patient and discussion of the patient with the care team Documentation time To help prompt me to consider important information that might be impacting today's encounter and assessment, Information from prior notes written by myself or my colleagues may have been "brought forward/copy and pasted" into today's note.
[2018-09-01] MEDS ORDERED: Morphine Sulfate Inj 2 MG/ML Vial IV.PUSH PRN (19:32)
--- NOTE | 2018-09-01 19:56 | P.OP ---
- Preoperative Diagnosis (1) Acute cholecystitis due to biliary calculus - Postoperative Diagnosis (1) Acute cholecystitis due to biliary calculus Date of procedure: 09/01/18 Procedure: Laparoscopic cholecystectomy Anesthesia: CON Surgeon: Rai Sanchez MD Assistant Property Manager: Jesusita Mazariegos CFA Estimated blood loss (mL): 150 IV fluids (mL): 1,000 Pathology: other (Gallbladder and contents to pathology) Operation and Findings: Patient was taken to the operating room and placed on the operating table in the supine position. After an adequate level of general endotracheal anesthesia was achieved, the abdomen was prepped and draped in the usual fashion. Time-out was taken confirming the correct patient, site, and procedure to be performed. Skin and subcutaneous tissue was infiltrated with local anesthetic and an incision made in the umbilicus and carried through the fascia sharply. The peritoneal cavity was directly visualized. A 12 mm balloon trocar was inserted and the balloon inflated. The abdomen was insufflated. The patient was placed in reverse Trendelenburg position. Three 5 mm trocars were then placed, with the first to the right of the falciform ligament and second and third in the right subcostal region. All entered the abdominal cavity under direct vision uneventfully. The omentum was seen to be plastered to the gallbladder, and this was peeled away bluntly. The gallbladder was tense and inflamed. The gallbladder was punctured with an aspirating needle and approximately 60 mils of cloudy whitish fluid was easily removed. With the gallbladder thus decompressed it could then be grasped and retracted up and over the dome of the liver. The cystic duct-infundibular junction and cystic artery were both circumferentially dissected. The cystic artery was doubly clipped proximally, singly clipped on the gallbladder side and divided. The gallbladder was intensely inflamed and before mobilizing the cystic duct further, the gallbladder was dissected off of the liver bed partially in a dome down type fashion. This allowed for easier mobilization of the cystic duct-infundibular junction and as the patient had a single stone in the neck of the gallbladder and normal caliber common bile duct, cholangiogram was not obtained. The anatomy was clearly identified and the liver function tests were normal. The cystic duct was doubly clipped distally, singly clipped on the gallbladder side and divided. The remainder of the gallbladder was dissected off of the liver bed with electrodissection. The gallbladder was placed into an Endo Catch device and removed via the umbilical port while observing via the upper 5 mm trocar site. The specimen was passed off the table. The upper abdomen was re-visualized via the umbilical port and all bleeding points on the liver bed controlled with electrocautery. The cystic artery stump and cystic duct stump were seen to be clean and dry. With the inflammatory process on the omentum demonstrating no further oozing, insufflation was discontinued and the 5 mm trocars were removed under direct vision. No bleeding was noted from the trocar sites. The laparoscope and umbilical port were removed. The fascia was closed in the umbilicus with 0 Vicryl suture in both a simple interrupted and [id number] fashion. 30 ml of 0.25% Marcaine with epinephrine was injected into each of the trocar sites. The skin was closed at each trocar site with 4-0 Vicryl in an interrupted buried fashion all sites were dressed with Steri-Strips. The patient was extubated and taken back to the recovery room in stable condition. She tolerated the procedure well. Sponge and needle counts were reported to be correct.
[2018-09-01 20:54] LABS: Hematocrit 32.7 % (35.0-46.0); Hemoglobin 11.3 gm/dL (11.6-15.3)
[2018-09-01] MEDS ORDERED: Sodium Chlor 0.9% Inj 500 ML IV.SIG ONE (21:00)
[2018-09-02 00:23] VITALS: TEMP 98.1
[2018-09-02] MEDS: Piperacil/Tazo 3.375 GM Premix 50 ML IV.SIG SCH ×2 (03:26→08:22)
[2018-09-02 04:56] LABS: Baso % (Auto) 0.1 % (0.0-2.0); Eos # (Auto) 0.1 th/mm3 (0.0-0.4); Eos % (Auto) 0.6 % (0.0-4.0); Hematocrit 33.3 % (35.0-46.0); Hemoglobin 11.1 gm/dL (11.6-15.3); Lymph # (Auto) 1.9 th/mm3 (1.0-4.8); Lymph % (Auto) 14.4 % (9.0-44.0); Mean Corpuscular HGB Conc 33.5 % (32.0-36.0); Mean Corpuscular Hemoglobin 31.1 pg (27.0-34.0); Mean Corpuscular Volume 92.8 fL (80.0-100.0); Mean Platelet Volume 8.4 fL (7.0-11.0); Mono # (Auto) 0.9 th/mm3 (0.0-0.9); Mono % (Auto) 6.8 % (0.0-8.0); Neut # (Auto) 10.2 th/mm3 (1.8-7.7); Neut % (Auto) 78.1 % (16.0-70.0); Platelet Count 237 th/mm3 (150-450); Red Blood Count 3.59 mil/mm3 (4.00-5.30); Red Cell Distribution Width 14.3 % (11.6-17.2)
[2018-09-02 06:12] VITALS: BP 120/63; PULSE 93; RESP 17; O2SAT 97
[2018-09-02] MEDS: Sodium Chloride 0.9% 2 ML Flush BID IV.FLUSH SCH (08:22)
[2018-09-02] MEDS: Senna/Docusate Sodium 8.6/50 MG Tablet PO SCH (08:23)
[2018-09-02] MEDS: Pantoprazole Sodium 20 MG DR Tablet PO SCH (08:23)
--- NOTE | 2018-09-02 17:47 | P.DS ---
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 Sanchez aware.* Notified:: Service Spoke with:: Angi Date Notified:: 08/31/18 Time Notified:: 20:20 Comments:: Ordering Provider: EDUARDO Brief History from admission: 48-year-old female with a past medical history significant for IBS, GERD and hypertension presents to the emergency department for the evaluation of chest burning and abdominal pain. The patient went to urgent care where she was found to be in sinus tachycardia and sent to the emergency department for further evaluation. She denies any fevers or chills. No nausea/vomiting/ diarrhea. No chest pain or shortness of breath. Found to have a leukocytosis of 21.7. EKG significant for sinus tachycardia, pulse 123. DS: Diagnosis Discharge Diagnosis (1) Acute cholecystitis due to biliary calculus: Status: Acute DS: Summary Pateint was admitted and continued on iv antibiotics, she was seen by general surgery and taken to the OR for laparoscopic cholecystecomy. Post operatively patient did well, tolerated a diet and was deemed clinically stable for discharge home and outpatient followup. She was sent home with bactrim for uti which was poa however cx was contaminated. She was instructed on diet, activity, followup, medications and signs to return to ER if needed. Status at Discharge Functional status at discharge: independent ambulation Overall status at discharge: patient is back to baseline Time Spent with Patient Total time spent providing and/or coordinating discharge services: Greater than 30 minutes Quality: VTE Deep Vein Thrombosis/Pulmonary Embolism Present on Admission: No Results Pending studies at discharge: Pending at discharge 09/01/18 Surgical [PTH] Routine Labs on day of discharge: Labs from last 24 hours 09/02/18 09/01/18 09/01/18 04:09 20:43 20:43 WBC 13.0 H RBC 3.59 L Hgb 11.1 L 11.3 L Hct 33.3 L 32.7 L Cancelled MCV 92.8 MCH 31.1 MCHC 33.5 RDW 14.3 Plt Count 237 MPV 8.4 Neut % (Auto) 78.1 H Lymph % (Auto) 14.4 [place] % (Auto) 6.8 Eos % (Auto) 0.6 Baso % (Auto) 0.1 Neut # (Auto) 10.2 H Lymph # (Auto) 1.9 [place] # (Auto) 0.9 Eos # (Auto) 0.1 Baso # (Auto) 0.0 WBC Differential . Differential Comment Auto diff final Impressions ITS Impressions Chest X-Ray 08/31/18 17:34 CONCLUSION: No active disease. Gallbladder Ultrasound 08/31/18 17:34 CONCLUSION: 1. Gallstone in gallbladder neck sludge in gallbladder and trace fluid around gallbladder. No significant gallbladder wall thickening. Chest CTA 08/31/18 18:44 CONCLUSION: 1. No pulmonary embolus. 2. Small focal subpleural density in the posterior right lateral base likely related to atelectasis or small focal consolidation. This can be followed. 3. Gallstone Discharge Plan Discharge Disposition Patient Disposition: 01 Discharge Home Discharge Condition Condition: Good Discharge Order Discharge Orders: Discharge Order (Routine); Ordered 09/02/18 Ordered By: Ameena Naik Physicians Team ED Provider: Evangelist Spence ED Midlevel Provider: Loraine Ku Primary Care Provider: Johnna Orellana Attending Provider: Ameena Naik Other Providers: Rai Sanchez Rxs /Orders / Referrals /Forms Prescriptions: New hydrocodone-acetaminophen [[place]] 5-325 mg Tablet 1 tab PO Q4H Qty: 25 RF: 0 sulfamethoxazole-trimethoprim [Bactrim DS] 800-160 mg tablet 1 tab PO Q12H Qty: 10 RF: 0 Continue multivitamin Tablet 1 tab PO DAILY RF: 0 hydrochlorothiazide 25 mg Tablet 25 mg PO DAILY RF: 0 omeprazole 20 mg Tablet,Delayed Release (Dr/Ec) 20 mg PO DAILY RF: 0 Referrals: Rai Sanchez MD [GENERAL SURGERY] - See Instructions (no heavy lifting, f/ u with dr sanchez 1 week, ok to shower no bath tub) Johnna Orellana MD [Primary Care Provider] - See Instructions Discharge Instructions Patient Printed Instructions: Hydrocodone/Acetaminophen (By mouth), Laparoscopic Cholecystectomy (DC) Status ED Status: Left Department Discharge Information Discharge Date/Time: 09/02/18 13:20
--- NOTE | 2018-09-02 22:43 | P.PNGS ---
Subjective Patient reports: no new complaints, feels better Physical Exam Vital signs: Vital Signs 09/02/18 00:00 09/02/18 00:06 09/02/18 02:02 Temperature 98.1 F Pulse Rate 76 69 Respiratory Rate 17 18 Blood Pressure 112/73 Pulse Oximetry 96 09/02/18 04:00 Temperature 98.1 F Pulse Rate 93 H Respiratory Rate 17 Blood Pressure 120/63 Pulse Oximetry 97 Intake & Output 09/02/18 09/02/18 09/03/18 06:59 18:59 06:59 Intake Total 3080 / 3080 1050 / 1050 Output Total 450 / 450 Balance 2630 / 2630 1050 / 1050 Weight 53.9 kg Intake: IV 1600 / 1600 1050 / 1050 NS + KCl 20 mEq Inj 1,000 ML @ 1000 / 1000 1000 / 1000 125 mls/hr IV.CONT .Q8H [facility] Rx# :[id number] Zosyn 3.375 GM Premix 50 ML @ 100 / 100 50 / 50 100 mls/hr IV.SIG Q6H DEL Rx#: [id number] NS Inj 500 ML @ Wide Open IV. 500 / 500 SIG BOLUS ONE Rx#:[id number] Oral 480 / 480 Anesthesia Amount 1000 / 1000 Output: Urine 300 / 300 Estimated Blood Loss 150 / 150 Other: Weight On Admission 53.977 kg - Routine Abdominal Exam Present: soft (incisional tenderness, c/d/i) Results - Labs 09/02/18 04:09 09/01/18 06:00 Laboratory Results - last 24 hr 09/02/18 04:09 WBC 13.0 H RBC 3.59 L Hgb 11.1 L Hct 33.3 L MCV 92.8 MCH 31.1 MCHC 33.5 RDW 14.3 Plt Count 237 MPV 8.4 Neut % (Auto) 78.1 H Lymph % (Auto) 14.4 [place] % (Auto) 6.8 Eos % (Auto) 0.6 Baso % (Auto) 0.1 Neut # (Auto) 10.2 H Lymph # (Auto) 1.9 [place] # (Auto) 0.9 Eos # (Auto) 0.1 Baso # (Auto) 0.0 WBC Differential . Differential Comment Auto diff final - Imaging Imaging: ITS Impressions Chest X-Ray 08/31/18 17:34 CONCLUSION: No active disease. Gallbladder Ultrasound 08/31/18 17:34 CONCLUSION: 1. Gallstone in gallbladder neck sludge in gallbladder and trace fluid around gallbladder. No significant gallbladder wall thickening. Chest CTA 08/31/18 18:44 CONCLUSION: 1. No pulmonary embolus. 2. Small focal subpleural density in the posterior right lateral base likely related to atelectasis or small focal consolidation. This can be followed. 3. Gallstone Assessment and Plan - Assessment (1) Acute cholecystitis due to biliary calculus Code(s): K80.00 - Calculus of gallbladder with acute cholecystitis without obstruction Status: Acute Plan: POD 1 Lap elana plan reg diet oob po pain control dec ivf d/c home today
--- NOTE | 2018-09-03 07:43 | ECG ---
Date Performed: 09/01/2018 Time Performed: 06:23:39 PTAGE: 48 years EKG: SINUS TACHYCARDIA NONSPECIFIC ST & T-WAVE ABNORMALITY ABNORMAL ECG PREVIOUS TRACING : 09/01/2018 01.14 Since the previous tracing, no significant change noted DOCTOR: Watson Bravo Interpretating Date/Time 09/03/2018 07:42:21
== END 2018-09-02 13:20 | disposition home or self-care (01) ==
LOC: NEDA 16:59 → NEPE 16:59 → NEDA 09-01 00:48 → NEPGCP 09-01 01:01 → N07 09-01 15:38
PROVIDERS: ADMIT Internal Medicine; ATTEND Internal Medicine